=== PATIENT | female | born 1975 | race Caucasian/White ===

== ENCOUNTER 2017-08-27 21:40 | Inpatient (IN) | payer OTHER ==
[~2017-08-27] VITALS: Ht 170.2 cm; Wt 111.2 kg
[~2017-08-27 21:40] MED LIST: HYDROCODON-ACE1 EAC7 PO; JUBLIA4 ML TP; METHOCARBAMOL750 MG PO; MULTIVITAMIN1 EAC2 PO; NYSTATIN60 GM TP; VENTOLIN HFA18 GM IH; XANAX0.25 MG PO
[2017-08-28 09:51] VITALS: BP 128/58
[2017-08-28 09:54] LABS: POINT-OF-CARE METER ID UU14174212
[2017-08-28 16:10] VITALS: BP 161/74
[2017-08-28 20:01] VITALS: BP 133/65
[2017-08-28 23:34] VITALS: BP 126/64
[2017-08-29 04:12] VITALS: BP 135/65
[2017-08-29 07:15] VITALS: BP 121/58
[2017-08-29 07:22] LABS: HEMATOCRIT 34.2 % (36.0-46.0); MCH 28.1 PG (29.0-34.0); MCHC 32.2 G/DL (30.0-36.0); MCV 87.5 FL (83-99); MEAN PLAT.VOLUME 9.7 uM^3 (9.5-12.4); PLATELET COUNT 329 K/uL (156-360); RBC DIS.WIDTH-CV 14.2 % (11.8-14.6); RBC DIS.WIDTH-SD 45.1 % (39-53); RED BLOOD COUNT 3.91 M/uL (3.80-5.20); WHITE BLOOD COUNT 17.1 K/uL (4.1-10.2)
[2017-08-29] MEDS ORDERED: PROTONIX40 MG PO (11:49)
== END 2017-08-29 12:45 | disposition home or self-care (01) | DRG 621 ==
LOC: ENRESERV 21:40 → 2SOUTH 08-28 08:33 → ENRESERV 08-28 14:16 → 2EASTP 08-28 16:08 → 2SOUTH 08-28 16:13 → 2EASTP 08-29 12:45
PROVIDERS: Surgery
PROC: 0DB64Z3 Excision of Stomach, Percutaneous Endoscopic Approach, Vertical (ICD-10-PCS; principal; 2017-08-28)
DX: E66.01 Morbid (severe) obesity due to excess calories (principal); G47.30 Sleep apnea, unspecified; Z68.38 Body mass index [BMI] 38.0-38.9, adult; K21.9 Gastro-esophageal reflux disease without esophagitis; D64.9 Anemia, unspecified; K46.9 Unspecified abdominal hernia without obstruction or gangrene; F17.200 Nicotine dependence, unspecified, uncomplicated; Z98.84 Bariatric surgery status
CPT/HCPCS: 82948; 85027; 94660; C9113; J0131; J0690; J1100; J1170; J1644; J1650; J1885; J2250; J2270; J2405; J2550; J2710; J2765; J3010; J3480; J7120